=== PATIENT | male | born 1950 | race Caucasian/White ===

== ENCOUNTER 2017-03-12 21:00 | Emergency (ER) | payer OTHER ==
[~2017-03-12] VITALS: Ht 177.8 cm; Wt 104.3 kg
[2017-03-12 21:30] VITALS: BP 139/82
[2017-03-12] MEDS ORDERED: BUPIVACAINE 0.25% 50 ML VIAL. ONE (21:51)
--- NOTE | 2017-03-12 21:58 | PHYS DOC ---
Adult General Chief Complaint Chief Complaint: LACERATION/AVULSION HPI HPI Patient is a 67 year old male presents to the emergency department with complaints of a crush injury with laceration to the right index finger. Patient states he works at [id number] when a piece of equipment crushed his right index finger and the lathe blade lacerated. Patient had hemostasis obtained prior to arrival. Denies loss range of motion. Tetanus immunization is unknown. Review of Systems Review of Systems Constitutional: Denies fever or chills [] Eyes: Denies change in visual acuity, redness, or eye pain [] HENT: Denies nasal congestion or sore throat [] Respiratory: Denies cough or shortness of breath [] Cardiovascular: No additional information not addressed in HPI [] GI: Denies abdominal pain, nausea, vomiting, bloody stools or diarrhea [] : Denies dysuria or hematuria [] Musculoskeletal: Finger pain Integument: Laceration Neurologic: Denies headache, focal weakness or sensory changes [] Endocrine: Denies polyuria or polydipsia [] Current Medications Current Medications Current Medications Medications (Trade) Dose Ordered Sig/[facility] Start Time Stop Time Status Last Admin Dose Admin Bupivacaine HCl (Marcaine 0.25%) 50 ml STK-MED ONCE 03/12/17 21:51 03/12/17 21:52 DC Bupivacaine HCl (Marcaine 0.5%) 50 ml 1X ONCE 03/12/17 22:00 03/12/17 22:01 DC 03/12/17 22:45 50 ML Diphtheria/ Tetanus/Acell Pertussis (Boostrix) 0.5 ml ONCE ONCE 03/12/17 22:00 03/12/17 22:01 DC 03/12/17 22:46 0.5 ML Lidocaine/ Epinephrine (Xylocaine 1%-Epi 1:100,000) 20 ml 1X ONCE 03/12/17 23:00 03/12/17 23:01 DC 03/12/17 23:00 20 ML Allergies Allergies Allergies Coded Allergies Type Severity Reaction Last Updated Verified No Known Drug Allergies 03/12/17 No Physical Exam Physical Exam Constitutional: Well developed, well nourished, no acute distress, non-toxic appearance. [] Cardiovascular:Heart rate regular rhythm, no murmur [] Lungs & Thorax: Bilateral breath sounds clear to auscultation [] Skin: Warm, dry, no erythema, no rash. [] Extremities: Right hand exam, no swelling, no ecchymosis. There is half centimeter superficial laceration over the dorsal aspect of the hand of the carpal bone of the long finger. The index finger, lateral aspect at the PIP has a 1.5 cm partial thickness laceration. There is a piece of metal embedded in the laceration. Patient has full range of motion of the digit without difficulty. Neurovascular intact distally. Remainder hand exam unremarkable. Current Patient Data Vital Signs Vital Signs Date Time Temp Pulse Resp B/P (MAP) Pulse Ox O2 Delivery O2 Flow Rate FiO2 03/12/17 21:30 98.6 99 18 97 Room Air 98.6 EKG EKG [] Radiology/Procedures Radiology/Procedures Hand x-ray: No bony injury. There is fragments of foreign body in the soft tissue at the point laceration.[] Course & Med Decision Making Course & Med Decision Making Pertinent Labs and Imaging studies reviewed. (See chart for details I've spoken with the patient. I carefully explored the wound for a foreign body. Foreign body was identified and removed but in some cases is not possible to identify and remove all foreign bodies. I've explained to the patient that despite a thorough soft, some foreign bodies cannot be easily found removed. At this point further searching or attempts at removal may cause worsening tissue damage and may cause more harm than good. I have shared this information with the patient. In the event that there is a retained foreign body persistent pain, redness and possibly discharge from the injury site. This is been communicated and the patient may require follow-up with [facility] for continued suture removal at that time. Procedure note: An anesthetized with Marcaine 0.5% per digital block. Metal fragment removed from the wound. Several smaller particles of metal were removed removed. The wound was copiously irrigated further explored, no foreign body noted. Wound cleansed with Betadine/normal saline. Wound edges approximated with 5-0 Prolene number or simple interrupted sutures. Patient tolerated procedure well. Neurovascular intact distally. Sling applied by nursing staff. Dragon Disclaimer Dragon Disclaimer This electronic medical record was generated, in whole or in part, using a voice recognition dictation system. Departure Departure Impression: Primary Impression: Finger laceration Disposition: HOME, SELF-CARE Condition: STABLE Referrals: NO PCP (PCP) PRS workman comp Patient Instructions: Laceration Care, Adult Additional Instructions: Follow up workman's comp work today. Problem Qualifiers Primary Impression: Finger laceration Encounter type: initial encounter Finger: index finger Damage to nail status: without damage Foreign body presence: with foreign body Laterality: left Qualified Codes: S61.221A - Laceration with foreign body of left index finger without damage to nail, initial encounter LESA [employer]LEY [employer] Mar 12, 2017 21:58
[2017-03-12] MEDS ORDERED: BUPIVACAINE 0.5% 50 ML VIAL. SQ ONE (22:00)
[2017-03-12] MEDS ORDERED: DIPHTH,PERTUSS(ACELL),TET TOX 0.5 ML DISP.SYRIN. VAX IM ONE (22:00)
[2017-03-12] MEDS ORDERED: LIDOCAINE 1%/EPI 1:100,000 20 ML VIAL. ONE (22:51)
[2017-03-12] MEDS ORDERED: LIDOCAINE 1%/EPI 1:100,000 20 ML VIAL. INJ ONE (23:00)
--- NOTE | 2017-03-13 08:14 | RAD ---
Right hand, 3 views, 03/12/2017: History: Crush injury while cutting steel There is a partially radiopaque bandage projected over the index finger region. No acute fracture or dislocation is identified. There are mild degenerative changes at scattered interphalangeal joints. There is moderate degenerative change at the first CMC joint. There are tiny radiopaque foreign bodies projected over the soft tissues of the index finger, most numerous along the radial aspect of the distal end of the proximal phalanx. There is also a small linear radiopaque foreign body projected over the soft tissues along the ulnar aspect of the fifth metacarpal. These apparent foreign bodies may lie in the soft tissues or on the surface of the patient, and are of indeterminate ages. Clinical correlation is suggested. IMPRESSION: 1. No acute bony abnormality is detected. 2. Moderate scattered degenerative changes. 3. Tiny radiopaque foreign bodies as described above.
== END 2017-03-12 23:34 | disposition home or self-care (01) ==
LOC: ER 21:00
DX: S61.221A Laceration with foreign body of left index finger without damage to nail, initial encounter (principal); W23.0XXA Caught, crushed, jammed, or pinched between moving objects, initial encounter; Y93.89 Activity, other specified; Y99.8 Other external cause status; Y92.89 Other specified places as the place of occurrence of the external cause
CPT/HCPCS: 12041; 73130; 90471; 90715; 96372; 99285; J3490